=== PATIENT | male | born 1965 | race Caucasian/White ===

== ENCOUNTER 2017-12-17 07:30 | Day surgery (SDC) | payer BC ==
[2017-12-12 13:45] VITALS: BMI 29.2
[2017-12-17] MEDS ORDERED: Propofol 10 mg/ml Inj (20 ML) ONE ×2 (09:09)
[2017-12-17] MEDS ORDERED: Lidocaine Hydrochloride 5 ML INJ ONE (09:09)
--- NOTE | 2017-12-17 09:10 | CP.SDSHP ---
Same Day Surgery H & P - History Proposed Procedure: colonoscopy screening Pre-Op Diagnosis: screening for colon cancer - Previous Medical/Surgical History Cardiac: Hypertension, Other (hypercholesterolemia, ) Misc: Other (hyperuricemia) Previous Surgical History: denies - Allergies Allergies: Allergies No Known Allergies Allergy (Verified 12/12/17 13:45) - Physical Exam Vital Signs: Vital Signs 12/17/17 08:00 Temperature 98 F Pulse Rate 57 L Respiratory 19 Rate Blood Pressure 139/85 O2 Sat by Pulse 100 Oximetry Mental Status: Alert & Oriented x3 Neuro: WNL Heart: WNL Lungs: WNL GI: WNL - Impression Impression: screening for colon cancer Pt. Evaluated Today:Candidate for Anesthesia & Procedure: Yes - Date & Time Date: 12/17/17 Time: 09:10 Short Stay Discharge - Short Stay Discharge Admitting Diagnosis/Reason for Visit: SCREENING Disposition: HOME/ ROUTINE
[2017-12-17] MEDS ORDERED: Lactated Ringer's 500 ML IV ONE (09:12)
[2017-12-17 11:04] VITALS: TEMP 96.8
[2017-12-17 11:05] VITALS: O2SAT 99
[2017-12-17 11:06] VITALS: RESP 12
[2017-12-17 11:13] VITALS: BP 104/72; PULSE 56
== END 2017-12-17 10:40 | disposition home or self-care (01) ==
LOC: C.ENDO 07:30
PROVIDERS: ATTEND Internal Medicine Gastroenterology
DX: Z12.11 Encounter for screening for malignant neoplasm of colon (principal); D12.3 Benign neoplasm of transverse colon; K64.1 Second degree hemorrhoids; I10 Essential (primary) hypertension; E78.00 Pure hypercholesterolemia, unspecified
CPT/HCPCS: 45385; 88305; J2704; J7120